=== PATIENT | male | born 1990 | race Caucasian/White ===

== ENCOUNTER 2022-02-07 08:28 | Emergency (ER) | payer SELFPAY ==
[2022-02-07 08:51] VITALS: BP 121/79; PULSE 73; TEMP 97.6; BMI 30.2
== END 2022-02-07 09:45 | disposition home or self-care (01) ==
LOC: JERFT 08:28 → JER 08:28 → JERFT 09:45
PROC: 0HQ1XZZ Repair Face Skin, External Approach (ICD-10-PCS; principal; 2022-02-07)
DX: S01.511A Laceration without foreign body of lip, initial encounter (principal); W01.0XXA Fall on same level from slipping, tripping and stumbling without subsequent striking against object, initial encounter
CPT/HCPCS: 99282-25